=== PATIENT | male | born 1985 | race African-American/Black ===

== ENCOUNTER → 2023-04-26 16:46 | Outpatient (CLI) | payer OTHER, SELFPAY ==
--- NOTE | 2023-04-26 16:47 | DI.US.S_ITS ---
PROCEDURE: US SCROTUM INDICATIONS: RIGHT TESTICLE PAIN - POST VASTECTOMY 04/15/23 TECHNIQUE: Real-time scanning was performed of the scrotum and testicles, with image documentation. Color and pulse Doppler interrogation was performed of both testicles. COMPARISON: None. FINDINGS: Right: Testicle is normal in size at 3.7 x 2.5 x 2.5 cm, and mildly heterogeneous in echotexture. Small to moderate right-sided mildly complex hematocele. Epididymis is normal in overall size with multiple small epididymal head cysts, the largest of which measures 3 x 5 x 4 mm. No varicoceles. Overlying scrotal skin is normal in thickness. Left: Testicle is normal in size at 4 x 2.5 x 2.1 cm, and homogeneous in echotexture. Epididymis is normal in overall size and morphology. No hydrocele or varicoceles. Overlying scrotal skin is normal in thickness. Doppler: Color and pulse Doppler demonstrate normal and symmetric arterial flow in both testicles. IMPRESSION: 1. Small to moderate right-sided mildly complex hematocele, likely post-surgical. Recommend clinical follow-up. A short term ultrasound follow-up can be performed, at clinical discretion. 2. Bilateral testicles are symmetric in size. Mildly heterogenous right sided testicular echotecture is likely reactive. 3. Small benign right epididymal head cysts, the largest of which measures 3 x 5 x 4 mm. Dictated by: Abby Altamirano M.D. on 04/27/2023 at 9:07 Approved by: Abby Altamirano M.D. on 04/27/2023 at 9:13
== END ==
PROVIDERS: PCP Family Medicine; Referring Provider Specialist; Visit Provider Specialist
DX: N45.1 Epididymitis (principal); N50.1 Vascular disorders of male genital organs; N50.3 Cyst of epididymis
CPT/HCPCS: 76870; 93975

== ENCOUNTER → 2023-08-23 10:18 | Outpatient (CLI) | payer OTHER, SELFPAY ==
[2023-08-23 10:44] LABS: Semen Sperm Prescence Post-Vas Present (ABSENT)
== END ==
LOC: LAB 10:20
PROVIDERS: PCP Family Medicine; Referring Provider Specialist; Visit Provider Specialist
DX: Z98.52 Vasectomy status (principal)
CPT/HCPCS: 89321

== ENCOUNTER → 2023-10-06 13:07 | Outpatient (CLI) | payer OTHER, SELFPAY ==
[2023-10-06 13:18] LABS: Semen Sperm Prescence Post-Vas Absent (ABSENT)
== END ==
PROVIDERS: PCP Family Medicine; Referring Provider Specialist; Visit Provider Specialist
DX: Z30.2 Encounter for sterilization (principal)
CPT/HCPCS: 89321